=== PATIENT | male | born 2005 | race Caucasian/White ===

== ENCOUNTER 2025-08-05 15:45 | Emergency (ER) | payer BC ==
[2025-08-05] MEDS ORDERED: Bacitracin 1 PK ONE (16:31)
== END 2025-08-05 16:38 | disposition home or self-care (01) ==
LOC: MADERS 15:45
DX: S61.411A Laceration without foreign body of right hand, initial encounter (principal); W26.0XXA Contact with knife, initial encounter
CPT/HCPCS: 12001; 99282